=== PATIENT | female | born 1985 | race Two or more races ===

== ENCOUNTER 2022-09-04 15:59 | Emergency (ER) | payer MEDICARE, MEDICAID ==
--- NOTE | 2022-09-04 16:48 | ED Physician Documentation ---
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 About 4 days ago developed fever, cough, runny nose. Has had pulse oximetry is at home in the low 90s. She usually lives in a nursing home in [place] but is home with family for the holidays. Negative home COVID test yesterday. Per mom she cannot be intubated because of anatomic abnormalities. She does use nebulizers at home on occasion but does not have those here at her mom's house. Review of Systems Ten Systems: 10 systems reviewed and negative Constitutional: reports: Fever, Chills Nose: reports: Rhinorrhea / runny nose Cardiac: denies: Chest pain / pressure, Palpitations Respiratory: reports: Dyspnea, Cough PD PAST MEDICAL HISTORY - Present Medications Home Medications: Ambulatory Orders Medication Instructions Recorded Confirmed Albuterol 2.5 mg INH Q4H PRN #30 ml 09/04/22 Cefdinir 4.5 ml PO BID 10 Days #90 ml 09/04/22 Nebulizer 1 each MC ONCE #1 ea 09/04/22 - Allergies Allergies/Adverse Reactions: Allergies Allergy/AdvReac Type Severity Reaction Status Date / Time amoxicillin Allergy Unknown Verified 09/04/22 16:15 PD ED PE NORMAL - Vitals Vital signs reviewed: Yes - General General: Alert and oriented X 3, Other (Pronounced kyphosis of the spine, mild tachypnea and tachycardia. Very small for age.) - HEENT HEENT: Other (Cloudy corneas) - Neck Neck: Supple, no meningeal sign, No bony TTP - Cardiac Cardiac: Other (Tachycardic but regular without murmur) - Respiratory Respiratory: Other (Mild tachypnea but speaking in full sentences, rhonchorous and wheezy throughout.) - Abdomen Abdomen: Normal bowel sounds, Soft, Non tender - Derm Derm: Normal color, Warm and dry - Neuro Neuro: Alert and oriented X 3, Normal speech Results - Vitals Vitals: Vital Signs - 24 hr 09/04/22 09/04/22 09/04/22 16:03 16:14 17:15 Temperature 36.8 C 36.8 C Heart Rate 144 H 144 H 102 H Respiratory 20 20 38 H Rate Blood Pressure 151/107 H 151/107 H O2 Saturation 94 94 09/04/22 09/04/22 09/04/22 18:14 19:25 20:00 Temperature 36.9 C Heart Rate 147 H 143 H 138 H Respiratory 30 H 18 Rate Blood Pressure O2 Saturation 94 94 96 09/04/22 20:24 Temperature 36.8 C Heart Rate 138 H Respiratory 26 H Rate Blood Pressure 153/103 H O2 Saturation 98 Oxygen O2 Source Room air - Labs Labs: Laboratory Tests 09/04/22 09/04/22 09/04/22 16:55 19:16 19:16 WBC 11.1 H RBC 4.81 Hgb 13.7 Hct 42.4 MCV 88.1 MCH 28.5 MCHC 32.3 RDW 14.0 Plt Count 300 MPV 9.3 Neut # (Auto) Not Reportable Lymph # (Auto) Not Reportable [place] # (Auto) Not Reportable Eos # (Auto) Not Reportable Baso # (Auto) Not Reportable Absolute Nucleated RBC Not Reportable Total Counted 100 Band Neuts % (Manual) 8 Reactive Lymphs % (Man) 2 Abnorm Lymph % (Manual) 0 Nucleated RBC % Not Reportable Neutrophils # (Manual) 8.4 H Lymphocytes # (Manual) 1.8 Monocytes # (Manual) 0.9 Eosinophils # (Manual) 0.0 Basophils # (Manual) 0.0 Differential Comment MANUAL DIFFERENTIAL WBC Morphology NORMAL APPEARANCE Platelet Estimate NORMAL (130-450,000) Platelet Morphology NORMAL APPEARANCE RBC Morph Micro Appear NORMAL APPEARANCE Sodium 132 L Potassium 3.7 Chloride 99 L Carbon Dioxide 23 Anion Gap 10.0 BUN 11 Creatinine < 0.3 L Estimated GFR (MDRD) Glucose 140 H Lactic Acid Calcium 8.9 Total Bilirubin 0.5 AST 24 ALT 17 Alkaline Phosphatase 82 Total Protein 6.9 Albumin 3.3 Globulin 3.6 Albumin/Globulin Ratio 0.9 L Nasal Adenovirus (PCR) NOT DETECTED Nasal B. parapertussis DNA (PCR) NOT DETECTED Nasal Coronavir 229E PCR NOT DETECTED Nasal Coronavir HKU1 PCR NOT DETECTED Nasal Coronavir NL63 PCR NOT DETECTED Nasal Coronavir OC43 PCR NOT DETECTED Nasal Enterovir/Rhinovir PCR DETECTED A Nasal Influenza B PCR NOT DETECTED Nasal Influenza A PCR NOT DETECTED Nasal Parainfluen 1 PCR NOT DETECTED Nasal Parainfluen 2 PCR NOT DETECTED Nasal Parainfluen 3 PCR NOT DETECTED Nasal Parainfluen 4 PCR NOT DETECTED Nasal RSV (PCR) NOT DETECTED Nasal B.pertussis DNA PCR NOT DETECTED Nasal C.pneumoniae (PCR) NOT DETECTED [place] Human Metapneumo PCR NOT DETECTED Nasal M.pneumoniae (PCR) NOT DETECTED Nasal SARS-CoV-2 (PCR) NOT DETECTED 09/04/22 19:16 WBC RBC Hgb Hct MCV MCH MCHC RDW Plt Count MPV Neut # (Auto) Lymph # (Auto) [place] # (Auto) Eos # (Auto) Baso # (Auto) Absolute Nucleated RBC Total Counted Band Neuts % (Manual) Reactive Lymphs % (Man) Abnorm Lymph % (Manual) Nucleated RBC % Neutrophils # (Manual) Lymphocytes # (Manual) Monocytes # (Manual) Eosinophils # (Manual) Basophils # (Manual) Differential Comment WBC Morphology Platelet Estimate Platelet Morphology RBC Morph Micro Appear Sodium Potassium Chloride Carbon Dioxide Anion Gap BUN Creatinine Estimated GFR (MDRD) Glucose Lactic Acid 1.7 Calcium Total Bilirubin AST ALT Alkaline Phosphatase Total Protein Albumin Globulin Albumin/Globulin Ratio Nasal Adenovirus (PCR) Nasal B. parapertussis DNA (PCR) Nasal Coronavir 229E PCR Nasal Coronavir HKU1 PCR Nasal Coronavir NL63 PCR Nasal Coronavir OC43 PCR Nasal Enterovir/Rhinovir PCR Nasal Influenza B PCR Nasal Influenza A PCR Nasal Parainfluen 1 PCR Nasal Parainfluen 2 PCR Nasal Parainfluen 3 PCR Nasal Parainfluen 4 PCR Nasal RSV (PCR) Nasal B.pertussis DNA PCR Nasal C.pneumoniae (PCR) [place] Human Metapneumo PCR Nasal M.pneumoniae (PCR) Nasal SARS-CoV-2 (PCR) - Rads (name of study) Single view chest x-ray demonstrates left lung opacities Radiology: Final report received, EMP read indepedently Procedures - General procedure General procedure: She was difficult for IV access, the nurses had tried several times, I tried initially in the right cephalic vein using ultrasound guidance and failed, then I was able to place a 22-gauge IV in the right brachial vein, but could not draw blood that way. 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 That said her mom says that her usual heart rates around 120 and she does not appear ill. Patient was hesitant to have blood work drawn but given her tachycardia we did feel it was necessary. An IV was placed but it subsequently blew and we were able to draw blood which was reassuring. X-ray shows pneumonia with a white count of 11, bio fire panel positive for rhinovirus and a normal lactate. It is likely mostly viral pneumonia, that said given her genetic and abnormalities we are treating with antibiotics out of an abundance of caution. Patient request discharge and she appears well enough for that and mom will keep a close eye on her. Around the time of discharge I took a call and [facility] did not have any third- generation cephalosporin liquid available. She is allergic amoxicillin. After talking with the pharmacist we settled on doxycycline 25 mg p.o. twice daily for 10 days. Departure - Departure Disposition: Home, Self Care Clinical Impression: Pneumonia Qualifiers: Pneumonia type: due to unspecified organism Laterality: left Lung location: lo wer lobe of lung Qualified Code(s): J18.9 - Pneumonia, unspecified organism Condition: Good Record reviewed to determine appropriate education?: Yes Instructions: ED Pneumonia Adult Prescriptions: Albuterol 2.5 mg INH Q4H PRN #30 ml PRN Reason: Wheezing Cefdinir 4.5 ml PO BID 10 Days #90 ml Nebulizer 1 each MC ONCE #1 ea Comments: + You are seen today for pneumonia, likely viral given the positive respiratory swab for enterovirus/rhinovirus. No other respiratory viruses were noted on that swab, specifically COVID, RSV and flu were negative. We are prescribing antibiotics and nebulizer and albuterol. Keep a close eye on her and if she worsens please return for reevaluation. Follow-up with your primary care physician, ideally Friday or Friday for recheck. Discharge Date/Time: 09/04/22 20:49
[2022-09-04] MEDS ORDERED: IPRATROPIUM/ALBUTEROL 3 ML NEB INH STA (16:49)
--- NOTE | 2022-09-04 17:07 | XRAY Report ---
PROCEDURE: Chest 1 View X-Ray INDICATIONS: fever/cough/low sats TECHNIQUE: One view of the chest was acquired. COMPARISON: None. FINDINGS: Surgical changes and devices: None. Lungs and pleura: Lung volumes are low. There are interstitial radiopacities within the left lung. N o pleural effusion or pneumothorax. Mediastinum: The heart is not well characterized given patient body habitus. 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 IMPRESSION: Question interstitial radiopacities within the left lung suspicious for aspiration or infection. Reviewed by: Becky Bueno MD on 09/04/2022 5:05 PM PST Approved by: Becky Bueno MD on 09/04/2022 5:05 PM PST Station ID: [id number]
[2022-09-04 18:18] LABS: B. PARAPERTUSSIS- RESP PCR PAN NOT DETECTED; B. PERTUSSIS- RESP PCR PANEL NOT DETECTED; C. PNEUMONIAE- RESP PCR PANEL NOT DETECTED; CORONAVIRUS 229E-RESP PCR NOT DETECTED; CORONAVIRUS HKU1-RESP PCR NOT DETECTED; CORONAVIRUS NL63-RESP PCR NOT DETECTED; CORONAVIRUS OC43-RESP PCR NOT DETECTED; HUMAN METAPNEUMOVIRUS NOT DETECTED; INFLUENZA A- RESP PCR PANEL NOT DETECTED; INFLUENZA B - RESP PCR PANEL NOT DETECTED; M. PNEUMONIAE- RESP PCR PANEL NOT DETECTED; PARAINFLUENZA VIRUS 1 NOT DETECTED; PARAINFLUENZA VIRUS 2 NOT DETECTED; PARAINFLUENZA VIRUS 3 NOT DETECTED; PARAINFLUENZA VIRUS 4 NOT DETECTED; RHINOVIRUS/ENTEROVIRUS DETECTED; RSV- RESP PCR PANEL NOT DETECTED; SARS-CoV-2 -RESP PCR PANEL NOT DETECTED
[2022-09-04] MEDS ORDERED: SODIUM CHLORIDE 0.9% 300 ML IV STA (18:58)
[2022-09-04 19:20] LABS: BASOPHILS % (AUTO) 0.5 %; EOSINOPHILS % (AUTO) 0.3 %; HCT - HEMATOCRIT 42.4 % (37.0-47.0); HGB - HEMOGLOBIN 13.7 g/dL (12.0-16.0); LYMPHOCYTES % (AUTO) 17.8 %; MEAN CORPUSCULAR HEMOGLOBIN 28.5 pg (27.0-31.0); MEAN CORPUSCULAR HGB CONC 32.3 g/dL (32.0-36.0); MEAN CORPUSCULAR VOLUME 88.1 fL (81.0-99.0); MEAN PLATELET VOLUME 9.3 fL (7.9-10.8); MONOCYTES % (AUTO) 5.9 %; NEUTROPHILS % (AUTO) 75.3 %; PLT - PLATELET COUNT 300 10^3/uL (130-450); RED BLOOD COUNT 4.81 10^6/uL (4.20-5.40); WHITE BLOOD COUNT 11.1 x10^3/uL (4.8-10.8)
[2022-09-04 19:25] LABS: ABNORMAL LYMPHS % (MANUAL) 0 %
[2022-09-04 19:36] LABS: ALBUMIN 3.3 g/dL (3.2-5.5); ALBUMIN/GLOBULIN RATIO 0.9 (1.0-2.2); ALKALINE PHOSPHATASE 82 IU/L (42-121); ALT ALANINE AMINOTRANSFERASE 17 IU/L (10-60); AST ASPARTATE AMINOTRANSFERASE 24 IU/L (10-42); BILIRUBIN,TOTAL 0.5 mg/dL (0.2-1.0); BUN - BLOOD UREA NITROGEN 11 mg/dL (6-20); CALCIUM 8.9 mg/dL (8.5-10.3); CARBON DIOXIDE - CO2 23 mmol/L (21-32); CHLORIDE 99 mmol/L (101-111); GLUCOSE 140 mg/dL (70-100); POTASSIUM 3.7 mmol/L (3.5-5.0); SODIUM 132 mmol/L (135-145); TOTAL PROTEIN 6.9 g/dL (6.7-8.2)
[2022-09-04] MEDS ORDERED: SODIUM CHLORIDE 0.9% IV STA (19:43)
[2022-09-04] MEDS ORDERED: CEFTRIAXONE IV STA (19:43)
[2022-09-04] MEDS ORDERED: CHERRY SYRUP 10 ML UDC PO ONE (20:07)
[2022-09-04 20:18] LABS: BAND NEUTROPHILS % (MANUAL) 8 %; LYMPHOCYTES # (MANUAL) 1.8 10^3/uL (1.5-3.5); LYMPHOCYTES % (MANUAL) 14 %; MONOCYTES # (MANUAL) 0.9 10^3/uL (0.0-1.0); NEUTROPHILS # (MANUAL) 8.4 10^3/uL (1.5-6.6); REACTIVE LYMPHS % (MANUAL) 2 %
[2022-09-04 20:19] LABS: DIFFERENTIAL COMMENT MANUAL DIFFERENTIAL; PLATELET ESTIMATE, MANUAL NORMAL (130-450,000) (NORMAL); PLATELET MORPHOLOGY NORMAL APPEARANCE (NORMAL); RBC MORPHOLOGY (MULTIPLE) NORMAL APPEARANCE (NORMAL); WBC MORPHOLOGY (MULTIPLE) NORMAL APPEARANCE (NORMAL)
[2022-09-04 20:24] LABS: CREATININE < 0.3 mg/dL (0.4-1.0)
[2022-09-04 20:25] VITALS: BP 153/103
== END 2022-09-04 20:49 | disposition home or self-care (01) ==
LOC: ED 15:59
DX: J18.9 Pneumonia, unspecified organism (principal); Z20.822 Contact with and (suspected) exposure to COVID-19; E76.219 Morquio mucopolysaccharidoses, unspecified
CPT/HCPCS: 36415; 71045; 80053; 83605; 85025; 87040; 87633; 94640; 99284; A9270

== ENCOUNTER 2022-09-05 17:28 | Outpatient (CLI) | payer MEDICARE, MEDICAID | END 2022-09-05 17:29 | disposition E | LOC: EMS 17:28 ==